=== PATIENT | female | born 1975 | race Caucasian/White ===

== ENCOUNTER 2017-05-10 07:50 | Emergency (ER) | payer OTHER ==
[2017-05-10 09:08] VITALS: BP 118/84
--- NOTE | 2017-05-10 09:47 | ED ---
Skin Complaint - HPI Summary HPI Summary: Forehead patch of skin that is tender and swollen. it has been going on since Monday and it has gotten worse. No prior medical conditions. No drainage. - History of Current Complaint Chief Complaint: UCSkin Time Seen by Provider: 05/10/17 09:37 Stated Complaint: SKIN COMPLAINT (HEAD) Hx Obtained From: Patient Hx Last Menstrual Period: 2005 Onset/Duration: Started Days Ago Skin Exposure Onset/Duration: Days Ago Timing: Constant, Lasting Days Onset Severity: Mild Current Severity: Moderate Pain Intensity: 4 Skin Location: Discrete, Face Character: Swelling, Pain, Redness, Raised, Painful Aggravating Symptom(s): Touch Alleviating Symptom(s): Nothing Associated Signs & Symptoms: Tenderness - Allergy/Home Medications Allergies/Adverse Reactions: Allergies Allergy/AdvReac Type Severity Reaction Status Date / Time milk Allergy See Comment Verified 05/10/17 08:58 omeprazole Allergy Hives Verified 05/10/17 09:08 Home Medications: Home Medications Ibuprofen TAB* [Motrin TAB* 400 MG] 400 mg PO ONCE PRN 05/10/17 [History Confirmed 05/10/17] PMH/Surg Hx/FS Hx/Imm Hx Previously Healthy: Yes - Surgical History Surgery Procedure, Year, and Place: B/L OOPHERECTOMY. CHOLECYSTECTOMY. Endoscopy Infectious Disease History: No Infectious Disease History: Denies: History Other Infectious Disease, Traveled Outside the [place] in Last 30 Days - Family History Known Family History: Positive: Hypertension, Diabetes - Social History Alcohol Use: Rare Substance Use Type: Reports: None Smoking Status (MU): Never Smoked Tobacco Review of Systems Negative: Fever, Chills Positive: Other - swelling. All Other Systems Reviewed And Are Negative: Yes Physical Exam Triage Information Reviewed: Yes Vital Signs On Initial Exam: Initial Vitals Temp Pulse Resp BP Pulse Ox 98.5 F 84 18 118/84 99 05/10/17 09:02 05/10/17 09:02 05/10/17 09:02 05/10/17 09:02 05/10/17 09:02 Vital Signs Reviewed: Yes Appearance: Positive: Well-Appearing, No Pain Distress, Well-Nourished. Negative: Ill-Appearing, Pain Distress, Thin Skin: Positive: Other - No scaling or crusting. There is tenderness, induration and pink skin in an irregular patch on the forehead around the hair line. Eyes: Positive: Normal, EOMI. Negative: PETAR ENT: Positive: Pharynx normal. Negative: Pharyngeal erythema Neck: Positive: Supple, Nontender, No Lymphadenopathy Respiratory/Lung Sounds: Negative: Unable to speak in full sentences, Fatigue Cardiovascular: Positive: Normal - cap refill intact. Abdomen Description: Negative: Distended Musculoskeletal: Negative: Edema Left, Edema Right Neurological: Positive: Alert, Oriented to Person Place, Time, CN Intact II-III Psychiatric: Positive: Normal, Affect/Mood Appropriate. Negative: Anxious, Depressed Diagnostics - Vital Signs Vital Signs Temp Pulse Resp BP Pulse Ox 05/10/17 09:02 98.5 F 84 18 118/84 99 - Laboratory Lab Statement: Any lab studies that have been ordered have been reviewed, and results considered in the medical decision making process. Course/Dx - Course Course Of Treatment: she agrees to go to ED for any signs of worsening. - Diagnoses Provider Diagnoses: Cellulitis and abscess of face Discharge - Discharge Plan Condition: Good Disposition: HOME Prescriptions: Sulfamethox/Trimethoprim DS* [Bactrim DS 800/160 TAB*] 1 tab PO BID #20 tab Patient Education Materials: Cellulitis (ED) Referrals: Dena Almonte MD [Primary Care Provider] - 2 Days Additional Instructions: Go to ED for any signs of worsening.
== END 2017-05-10 09:51 | disposition home or self-care (01) ==
LOC: UCCORT 07:50
DX: L03.211 Cellulitis of face (principal); L02.01 Cutaneous abscess of face
CPT/HCPCS: 99212; G0463

== ENCOUNTER 2017-07-15 20:33 | Emergency (ER) | payer OTHER ==
[2017-07-15 21:10] VITALS: BP 110/68
--- NOTE | 2017-07-15 21:37 | UC ---
Lower Extremity/Ankle HPI - HPI Summary HPI Summary: states about 2 hrs ago was roller skating and was hit on inner area of her right leg, and twisted her right ankle, she iced it and took ibuprofen 600mg then. She states she hobbled to UC but it is painful to bear weight. - History of Current Complaint Chief Complaint: UCLowerExtremity Stated Complaint: RIGHT ANKLE COMPLAINT Time Seen by Provider: 07/15/17 21:14 Hx Obtained From: Patient Hx Last Menstrual Period: OOPHERECTOMY ?: No Onset/Duration: Sudden Onset, Lasting Hours Severity Initially: Moderate Severity Currently: Moderate Pain Intensity: 6 Aggravating Factor(s): Standing, Ambulation Alleviating Factor(s): Rest, Elevation, Ice - Risk Factors Gout Risk Factors: Negative DVT Risk Factors: Negative Septic Arthritis Risk Factor: Negative - Allergies/Home Medications Allergies/Adverse Reactions: Allergies Allergy/AdvReac Type Severity Reaction Status Date / Time milk Allergy See Comment Verified 07/15/17 21:01 omeprazole Allergy Hives Verified 07/15/17 21:01 Home Medications: Home Medications Ibuprofen TAB* [Advil TAB*] 200 mg PO Q6H PRN 07/15/17 [History Confirmed ] PMH/Surg Hx/FS Hx/Imm Hx Previously Healthy: Yes - Surgical History Surgical History: Yes Surgery Procedure, Year, and Place: B/L OOPHERECTOMY. CHOLECYSTECTOMY. Endoscopy - Family History Known Family History: Positive: Hypertension, Diabetes - Social History Alcohol Use: Occasionally Substance Use Type: None Smoking Status (MU): Never Smoked Tobacco Review of Systems Constitutional: Negative Musculoskeletal: Edema, Myalgia All Other Systems Reviewed And Are Negative: Yes Physical Exam Triage Information Reviewed: Yes Appearance: No Pain Distress, Obese Vital Signs: Initial Vital Signs Temp 99.4 F 07/15/17 21:04 Pulse 86 07/15/17 21:04 Resp 16 07/15/17 21:04 BP 110/68 07/15/17 21:04 Pulse Ox 99 07/15/17 21:04 Vital Signs Reviewed: Yes Eyes: Positive: Conjunctiva Clear Neck: Positive: Supple, Nontender, No Lymphadenopathy Respiratory: Positive: Chest non-tender, Lungs clear, Normal breath sounds, No respiratory distress Cardiovascular: Positive: RRR, No Murmur, Pulses Normal, Brisk Capillary Refill Musculoskeletal Exam: Other - tender around lateral malleolus of right ankle with mild edema, no echimosis noted. Pedal pulses present, capillary refill is brisk. FROM of toes, ROM ankle limited by pain Lower Extremity Course/Dx - Course Course Of Treatment: RICE instructions, continue ibuprofen for 24-48hr and as needed thereafter. Use of crutches instructed for patient, ankle brace. F/u with PCP - Differential Dx/Diagnosis Provider Diagnoses: ankle sprain Discharge - Sign-Out/Discharge Documenting (check all that apply): Discharge/Admit/Transfer - Discharge Plan Condition: Stable Disposition: HOME Patient Education Materials: Ankle Sprain (ED), Ibuprofen (By mouth) Referrals: Dena Almonte MD [Primary Care Provider] - - Billing Disposition and Condition Condition: STABLE Disposition: HOME
--- NOTE | 2017-07-15 21:57 | RAD ---
Indication: Lateral RIGHT ankle pain and swelling following injury. Comparison: No relevant prior exams available on the [facility] for comparison. Technique: AP, mortise, and lateral views RIGHT ankle. Report: Normal articular alignment. No fracture evident. Significant soft tissue swelling most prominent over the lateral malleolus. Probable small talocrural joint effusion. Small plantar fascia origin bone spur. IMPRESSION: Lateral soft tissue swelling and probable small talocrural joint effusion concerning for potential lateral supporting ligament injury.
== END 2017-07-15 22:16 | disposition home or self-care (01) ==
LOC: UCCORT 20:33
DX: S93.401A Sprain of unspecified ligament of right ankle, initial encounter (principal); X50.1XXA Overexertion from prolonged static or awkward postures, initial encounter; Y93.51 Activity, roller skating (inline) and skateboarding; Y92.9 Unspecified place or not applicable; Z88.8 Allergy status to other drugs, medicaments and biological substances
CPT/HCPCS: 99213; G0463